=== PATIENT | male | born 1990 | race Two or more races ===

== ENCOUNTER 2018-09-26 11:51 | Emergency (ER) | payer SELFPAY ==
[~2018-09-26] VITALS: Ht 154.9 cm; Wt 72.6 kg
[2018-09-26 12:22] VITALS: Ht 154.9 cm; Wt 72.6 kg
[2018-09-26 14:10] VITALS: BP 125/78
== END 2018-09-26 14:10 | disposition home or self-care (01) ==
LOC: ED 11:51
DX: S80.812A Abrasion, left lower leg, initial encounter (principal); S50.811A Abrasion of right forearm, initial encounter; W54.0XXA Bitten by dog, initial encounter; Y93.89 Activity, other specified; Y92.89 Other specified places as the place of occurrence of the external cause; Y99.8 Other external cause status
CPT/HCPCS: 90715